=== PATIENT | female | born 1995 | race Caucasian/White ===

== ENCOUNTER 2020-04-20 06:35 | Emergency (ER) | payer OTHER ==
[~2020-04-20] VITALS: Ht 170.1 cm; Wt 70.3 kg
[2020-04-20 07:13] LABS: BILIRUBIN Negative (Negative); BLOOD 3+ (Negative); CLARITY Cloudy (Clear); COLOR Yellow (Yellow); GLUCOSE Negative (Negative); KETONE Trace (Negative); LEUKO ESTERASE 2+ (Negative); NITRITE Positive (Negative); PH 5.5 (4.5-8.0); SPECIFIC GRAVITY 1.025 (1.001-1.030)
[2020-04-20 07:26] LABS: BACTERIA 2+; EPITHELIAL CELLS TNTC; WBC 21-30 wbc/hpf (0-5)
[2020-04-20 07:53] LABS: BASO % 0.5 % (0.0-1.0); EOS # 0.1 10*3/uL (0.0-0.4); EOS % 1.2 % (1.0-4.0); LYMPH # 2.2 10*3/uL (1.3-4.4); LYMPH % 27.7 % (27.0-41.0); MEAN CELL VOLUME 88.6 fl (81.0-99.0); MEAN CORPUSCULAR HGB CONC 33.8 g/dl (33.0-37.0); MEAN PLATELET VOLUME 10.5 fl (9.6-12.3); MONO # 0.5 10*3/uL (0.1-1.0); MONO % 6.3 % (3.0-9.0); PLATELET COUNT AUTOMATED 276 10*3/uL (130-400); RED BLOOD COUNT 4.74 10*6/uL (4.10-5.10); RED CELL DISTRI WIDTH 12.4 % (0-14.5); WHITE BLOOD COUNT 7.8 10*3/uL (4.8-10.8)
[2020-04-20 08:08] LABS: ALBUMIN 3.9 gm/dl (3.1-4.5); ALKALINE PHOSPHATASE 92 U/L (45-117); BUN 8 mg/dl (7-24); CHLORIDE 113 mmol/L (98-107); CREATININE 0.91 mg/dL (0.55-1.02); LIPASE 79 U/L (73-393); POTASSIUM 3.8 mmol/L (3.5-5.1); SGOT/AST 12 IU/L (3-35); SGPT/ALT 33 U/L (12-78); SODIUM 143 mmol/L (136-145)
[2020-04-20 08:16] LABS: BETA-HCG, QUANT < 1.0 mIU/mL (1-3)
[2020-04-20] MEDS ORDERED: CIPRO500 MG PO (08:30)
[2020-04-20] MEDS ORDERED: PHENERGAN25 M3 PO (08:30)
[2020-04-20] MEDS ORDERED: FLOMAX0.4 MG PO (08:30)
[2020-04-20] MEDS ORDERED: Motrin,Rufen800 MG PO (08:30)
[2020-04-20] MEDS ORDERED: PERCOCET 5-3251 EACH PO (08:30)
== END 2020-04-20 08:41 | disposition home or self-care (01) ==
LOC: ED 06:35
PROVIDERS: Emergency Medicine; Internal Medicine
DX: N20.1 Calculus of ureter (principal); N39.0 Urinary tract infection, site not specified